=== PATIENT | female | born 1980 | race Caucasian/White ===

== ENCOUNTER 2021-01-06 08:36 | Outpatient (CLI) | payer OTHER, SELFPAY ==
--- NOTE | ~2021-01-06 | XR_ITS ---
EXAMINATION: XR UGIAC w small bowel EXAM DATE: 01/06/2021 09:45 INDICATION: Upper abdominal pain, bloating, diarrhea. TECHNIQUE: Emulsification Operator radiograph was acquired. Standard single and double contrast barium upper GI examina tion was performed followed by small bowel series. Spot images of the terminal ileum were acquired. The DAP for this procedure was 24 Gycm2. There is no prior study for comparison. FINDINGS: There is no esophageal stricture, diverticulum or mass identified. Gastroesophageal juncti on is normal in appearance. Reflux was demonstrated during this examination. The stomach has a normal appearance without evidence of mass lesion, ulceration or filling defect. T here is normal rugal fold pattern. The duodenum and duodenal sweep are normal in appearance. Ileal and jejunal fold patterns are normal. There is no small bowel wall thickening or mass effect d isplacing small bowel. There are no intraluminal filling defects identified. There is no small mike l dilation. Terminal ileum is normal in appearance. Contrast reached the colon by 15 minutes, rapid transit time. IMPRESSION: 1. Moderate amount of gastroesophageal reflux. 2. Rapid transit time to colon at 15 minutes. Reviewed, dictated and finalized at location A. DIRECTOR
== END 2021-01-06 08:37 | disposition home or self-care (01) ==
PROVIDERS: PCP Physician Assistant; Visit Provider Physician Assistant
DX: R10.10 Upper abdominal pain, unspecified (principal)
CPT/HCPCS: 74246; 74248

== ENCOUNTER 2021-01-07 06:35 | Outpatient (CLI) | payer OTHER, SELFPAY ==
--- NOTE | ~2021-01-07 | NM_ITS ---
EXAMINATION: NM hepatobiliary w pharm EXAM DATE: 01/07/2021 11:27 INDICATION: Nausea and vomiting. Upper abdominal pain and bloating. TECHNIQUE: 5 mCi Tc-99m mebrofenin (Choletec) was administered intravenously. Scintigraphic images o f the abdomen were obtained for one hour. At the 1 hour time point, 2.0 mcg sincalide (Kinevac) was a dministered by slow intravenous infusion, and imaging was continued for 30 minutes. Gallbladder eject ion fraction was calculated by the technologist. There is no prior study for comparison. FINDINGS: There is normal clearance of radiotracer from the blood pool. There is homogeneous tracer u ptake by the liver. Activity progresses to the gallbladder and bowel. The gallbladder ejection fract ion (GBEF) is 94 % (most patients with gallbladder dysfunction have GBEF < 35%, but there is overlap with the normal range of 10-90%). IMPRESSION: Gallbladder ejection fraction 94%, within normal range. Reviewed, dictated and finalized at location A. ARINE DIVER
== END 2021-01-07 06:36 | disposition home or self-care (01) ==
LOC: ANHIMG 06:37
PROVIDERS: PCP Physician Assistant; Visit Provider Physician Assistant
DX: R11.2 Nausea with vomiting, unspecified (principal)
CPT/HCPCS: 78227; A9537; J2805

== ENCOUNTER → 2023-10-12 08:50 | Outpatient (CLI) | payer OTHER, SELFPAY ==
--- NOTE | ~2023-10-12 | US_ITS ---
US thyroid INDICATION: Abnormal thyroid function tests. TECHNIQUE: Real-time sonographic images of the thyroid gland were obtained. COMPARISON: No prior studies for comparison. FINDINGS: The right thyroid lobe measures 3.9 x 1.3 x 1.3 cm. The left thyroid lobe measures 4.5 x 1 .2 x 1.5 cm. There is normal echotexture and echogenicity throughout the thyroid gland. No discrete n odules identified. Normal vascular flow is present. IMPRESSION: 1. Normal thyroid without discrete nodule or abnormal vascularity. Reviewed, dictated and finalized at location L. E GAUGER
== END ==
PROVIDERS: PCP Physician Assistant; Visit Provider Physician Assistant
DX: R94.6 Abnormal results of thyroid function studies (principal)
CPT/HCPCS: 76536

== ENCOUNTER 2024-03-16 17:29 | Emergency (ER) | payer OTHER, SELFPAY ==
[2024-03-16 17:35] VITALS: BP 139/74; PULSE 91; RESP 16; TEMP 36.8; O2SAT 100
--- NOTE | 2024-03-16 17:38 | ED.GENADULT ---
HPI - General Adult General Chief complaint: Wound/Laceration Stated complaint: DOG BITE, right thumb Time Seen by Provider: 03/16/24 17:38 Source: patient, RN notes reviewed and old records reviewed Mode of arrival: ambulatory Limitations: no limitations History of Present Illness HPI narrative: 43-year-old female to [facility] complaint of dog bite to right [place] home. Patient reports that she was bit by her dog at approximately 5:00 p.m. last night when she went to remove something out of the dog's mouth. Patient states that she attempted to clean wound at home with peroxide and has been keeping it covered with Neosporin and a Band-Aid. Patient reports that her dog is up-to-date on all vaccinations. Patient endorsing pain of 8/10. Patient denies numbness, tingling. Related Data Home Medications Medication Instructions Recorded Confirmed folic acid 20 mg capsule 20 mg PO DAILY 01/22/21 02/01/21 hydrocodone bitartrate 30 mg 30 mg PO DAILY 01/22/21 02/01/21 tablet,crush resist,extended rel. 24hr ([facility]) brexpiprazole 2 mg tablet (Rexulti) mg 03/16/24 buspirone 15 mg tablet mg 03/16/24 escitalopram oxalate 20 mg tablet mg 03/16/24 folic acid 1 mg tablet 03/16/24 hydrocodone 10 mg-acetaminophen tablet 03/16/24 325 mg tablet hydroxychloroquine 200 mg tablet mg PO 03/16/24 levothyroxine 200 mcg tablet mcg 03/16/24 meloxicam 15 mg tablet mg 03/16/24 naloxegol 25 mg tablet (Movantik) mg PO 03/16/24 propranolol 10 mg tablet mg 03/16/24 semaglutide (weight loss) 2.4 mg subcut 03/16/24 mg/0.75 mL subcutaneous pen injector (Wegovy) Allergies Allergy/AdvReac Type Severity Reaction Status Date / Time prochlorperazine Allergy Unknown Muscle Pain Verified 01/29/21 09:36 [From Compazine] vancomycin Allergy Unknown Hives Verified 01/29/21 09:36 PROCHLORPERAZINE EDISYLATE Allergy Severe Unknown Uncoded 03/16/24 18:17 Review of Systems Review of Systems: All systems reviewed & are unremarkable except as noted in HPI and below Constitutional: Constitutional: Reports as per HPI and Denies fever(s) Eyes: Eyes: Reports no additional eye complaints ENT: Reports system reviewed and no additional complaints, except as documented Cardiovascular: Cardiovascular: Reports no additional cardiovascular complaints, Denies chest pain and Denies dyspnea Respiratory: Respiratory: Reports no additional respiratory complaints, Denies cough and Denies dyspnea Musculoskeletal: Musculoskeletal: Reports no additional musculoskeletal complaints Integumentary/Breasts: Skin/Breast: Reports wounds ( right distal palmar thumb 1.75 cm) Neurologic: Reports as per HPI, Denies numbness and Denies tingling Psychiatric: Psychiatric: Reports no additional psychiatric complaints PMFSH Past Medical History Medical History Anxiety GERD (gastroesophageal reflux disease) Hypothyroid Surgical History Surgical History kg removed H/O breast surgery x4 History of appendectomy History of ear surgery Hx of tonsillectomy S/P laparotomy Family History Family History Father Cancer of kidney Mother Rheumatoid arthritis Sibling Diabetes mellitus Social History Social History Smoking status: Never smoker Alcohol intake: current Living arrangements: with family Occupation/Education: unemployed Comments At the time of my signature, I reviewed and agree with the nursing past medical, surgical, social, and family history. There is no relevant family history pertinent to the patient complaint. Exam Const: General: cooperative, healthy appearing, comfortable, no acute distress, alert and well nourished Nutritional Appearance: well nourished Orient[place]
[2024-03-16] MEDS: TETANUS,DIPHTHERIA,AC PERTUSSIS ADULT (0.5 ML) BOOSTRIX IM (18:07)
== END 2024-03-16 18:33 | disposition home or self-care (01) ==
PROVIDERS: Emergency Provider Nurse Practitioner Family; PCP Physician Assistant
DX: S61.051A Open bite of right thumb without damage to nail, initial encounter (principal); W54.0XXA Bitten by dog, initial encounter; F41.9 Anxiety disorder, unspecified; K21.9 Gastro-esophageal reflux disease without esophagitis; E03.9 Hypothyroidism, unspecified; Z23 Encounter for immunization
CPT/HCPCS: 90471; 90715; 99203; G0463